=== PATIENT | female | born 1975 | race Caucasian/White ===

== ENCOUNTER 2021-04-23 16:37 | Outpatient (CLI) | payer OTHER, SELFPAY ==
--- NOTE | 2021-04-23 16:47 | XR_ITS ---
WS: [id number] Lumbar spine, 3 views, 04/23/2021 Clinical Data: LUMBAR PAIN Comparison: None. Findings: No compression fractures or subluxation is seen. No disc space narrowing is seen. The transverse proc esses and SI joints are normal. There is minimal anterior osteoarthritic spurring from L1 through L4. There is a 1.5 cm calcification adjacent to the left L5 transverse process which is probably in the colon. There is a large amount o f fecal material throughout the colon. XR/XR lumbar spine 2-3V* [id number] Impression: Mild osteoarthritis.
== END 2021-04-23 16:38 | disposition home or self-care (01) ==
LOC: RAD 16:40
PROVIDERS: PCP Family Medicine; Visit Provider Family Medicine
DX: M54.50 Low back pain, unspecified (principal); M47.816 Spondylosis without myelopathy or radiculopathy, lumbar region
CPT/HCPCS: 72100

== ENCOUNTER 2022-02-19 05:20 | Day surgery (SDC) | payer OTHER, SELFPAY ==
[2022-02-17 08:13] VITALS: BMI 27.3
--- NOTE | 2022-02-19 05:54 | PM.HP ---
Providers/Chief Complaint Primary Care Provider: Rosita Byrd MD Chief Complaint: Z12.11 History of Present Illness Lucina Field is a 46 year old female here for colonoscopy Medications/Allergies Home Medications Medication Instructions Recorded Confirmed Last Taken Type bupropion HCl 300 mg 24 hr tablet, 300 mg PO QAM 11/27/21 02/17/22 Unknown History extended release (Wellbutrin XL) buspirone 10 mg tablet 10 mg PO BID 11/27/21 02/17/22 Unknown History cetirizine 10 mg tablet (Zyrtec) 10 mg PO DAILY PRN Allergy Symptoms 11/27/21 02/17/22 Unknown History cyclobenzaprine 5 mg tablet 5 mg PO ONCE PRN Muscle Spasm 11/27/21 02/17/22 Unknown History diphenhydramine-phenylephrine 25 1 tab PO DAILY 11/27/21 02/17/22 Unknown History mg-10 mg tablet (Benadryl Allergy Plus Congestion) ipratropium bromide 21 mcg (0.03 2 spray intranasal BID 11/27/21 02/17/22 Unknown History %) nasal spray metoprolol tartrate 25 mg tablet 25 mg PO DAILY 11/27/21 02/17/22 Unknown History omeprazole 20 mg capsule,delayed 20 mg PO DAILY 11/27/21 02/17/22 Unknown History release probiotic 1 tab PO DAILY 11/27/21 02/17/22 Unknown History solifenacin 10 mg tablet (Vesicare) 10 mg PO DAILY 11/27/21 02/17/22 Unknown History Allergies Allergy/AdvReac Type Severity Reaction Status Date / Time morphine Allergy itch Verified 02/17/22 08:09 PFSH Acute PFSH: Medical History (Updated 11/27/21 @ 16:10 by Rylan Carter DO) Hx of gastric ulcer Surgical History (Updated 11/27/21 @ 16:09 by Rylan Carter DO) History of dental surgery History of nasal surgery Hx of hysterectomy Hx of knee surgery Social History Smoking and tobacco status: never smoked Vitals/I&O/Wt Weight last 48 hrs Weight 185 lb A&P Assessment and plan (1) Constipation: Plan Colonoscopy Attestations Medical Necessity Statement*: home Coding Level of Care Code Acute Certified Endoscopy Technician for Chg Fwd Diagnoses Constipation K59.00
[2022-02-19 06:10] VITALS: BP 131/77; PULSE 69; RESP 18; TEMP 36.8; O2SAT 100
[2022-02-19] MEDS: sodium chloride 0.9% 1,000 ML 30 ML IV (06:17)
--- NOTE | 2022-02-19 06:50 | ANES.PREANE2 ---
Pre-Anesthetic Assessment Height/Weight: Height 1.75 m Weight 83.915 kg Temp Pulse Resp BP Pulse Ox O2 Del Method 98.3 F 69 18 131/77 100 02/19/22 06:10 02/19/22 06:10 02/19/22 06:10 02/19/22 06:10 02/19/22 06:10 02/19/22 06:10 Preop Diagnosis: screening Operation Date: 02/19/22 07:00 Proposed Procedures p Colonoscopy 01113,Z12.11(Not Applicable) - Rylan Carter, DO Was Beta Alejandro taken within 24 hours: Yes Was Clonidine taken within 24 hours: N/A Last intake: Intake Last Liquid Date 02/18/22 Last Liquid Time 17:30 Last Solid Date 02/17/22 Last Solid Time 17:30 Social No alcohol and No tobacco Exam alert, oriented x 3, clear to auscultation bilaterally and regular rate & rhythm Airway Submandibular: within normal limits Cervical ROM: within normal limits Mallampati: Class I History/ROS No significant history except as noted and No significant complaints Pulmonary None reported CV/HEM Hypertension takes metorpolol, last this morning None reported Hepatic None reported GI None reported Metabolic None reported Musc/skel None reported Neuropsych Depression Anesthetic Plan ASA status: 2 Anesthesia: Anesthesia Evaluation and MAC Risk of > 500 ml blood loss (7ml/kg in children): Yes, adequate IV access and fluids planned Medications/Allergies Home Medications Medication Instructions Recorded Confirmed Last Taken Type bupropion HCl 300 mg 24 hr tablet, 300 mg PO QAM 11/27/21 02/19/22 02/19/22 History extended release (Wellbutrin XL) buspirone 10 mg tablet 10 mg PO BID 11/27/21 02/19/22 02/19/22 History cetirizine 10 mg tablet (Zyrtec) 10 mg PO DAILY PRN Allergy Symptoms 11/27/21 02/19/22 02/18/22 History cyclobenzaprine 5 mg tablet 5 mg PO ONCE PRN Muscle Spasm 11/27/21 02/19/22 02/18/22 History diphenhydramine-phenylephrine 25 1 tab PO DAILY 11/27/21 02/19/22 02/17/22 History mg-10 mg tablet (Benadryl Allergy Plus Congestion) ipratropium bromide 21 mcg (0.03 2 spray intranasal BID 11/27/21 02/19/22 02/18/22 History %) nasal spray metoprolol tartrate 25 mg tablet 25 mg PO DAILY 11/27/21 02/19/22 02/19/22 History omeprazole 20 mg capsule,delayed 20 mg PO DAILY 11/27/21 02/19/22 02/18/22 History release probiotic 1 tab PO DAILY 11/27/21 02/19/22 02/18/22 History solifenacin 10 mg tablet (Vesicare) 10 mg PO DAILY 11/27/21 02/19/22 02/18/22 History Allergies Allergy/AdvReac Type Severity Reaction Status Date / Time morphine Allergy itch Verified 02/19/22 06:05 Current Medications Generic Name Dose Route Start Last Admin Trade Name Freq PRN Reason Stop Dose Admin Sodium Chloride 1,000 mls @ 30 mls/hr 02/19/22 06:15 02/19/22 06:17 Sodium Chloride 0.9% IV 02/20/22 06:14 30 mls/hr .Q24H SOFI Administration PFSH Anesthesia Medical History (Updated 11/27/21 @ 16:10 by Rylan Carter DO) Hx of gastric ulcer Surgical History (Updated 11/27/21 @ 16:09 by Rylan Carter DO) History of dental surgery History of nasal surgery Hx of hysterectomy Hx of knee surgery Social History Smoking and tobacco status: never smoked Data Anesthesia Cardiac Studies: No Data to Display
[2022-02-19 07:21] VITALS: BP 130/68; PULSE 72; RESP 16; TEMP 36.9; O2SAT 100
[2022-02-19 07:41] VITALS: BP 128/71; PULSE 63; RESP 18; O2SAT 100
--- NOTE | 2022-02-19 14:32 | ANE.PACU2 ---
Inpatient post-anesthesia follow up: Airway intact: Yes Vital signs: Temperature 98.4 F Pulse Rate 63 Respiratory Rate 18 Blood Pressure 128/71 Pulse Oximetry 100 Oxygen Delivery Me thod Room Air Oxygen Flow Rate Fraction of Inspir ed Oxygen Hydration adequate: Yes Nausea and vomiting: No Pain level: 1 Mental status: Baseline
== END 2022-02-19 07:56 | disposition home or self-care (01) ==
PROVIDERS: PCP Family Medicine; Visit Provider Surgery
PROC: 0DJD8ZZ Inspection of Lower Intestinal Tract, Via Natural or Artificial Opening Endoscopic (ICD-10-PCS; CPT 45378; principal; 2022-02-19 07:00)
DX: Z12.11 Encounter for screening for malignant neoplasm of colon (principal); I10 Essential (primary) hypertension; Z87.11 Personal history of peptic ulcer disease
CPT/HCPCS: 45378; J2704; J7030

== ENCOUNTER 2022-06-07 13:49 | Emergency (ER) | payer OTHER, SELFPAY ==
[2022-06-07 14:14] VITALS: BP 145/96; PULSE 69; RESP 22; TEMP 36.4; O2SAT 100
--- NOTE | 2022-06-07 14:32 | XRR_ITS ---
PROCEDURE INFORMATION: Exam: XR Chest Exam date and time: 06/07/2022 2:37 PM Age: 46 years old Clinical indication: Other: N/v; Additional info: Covid symptoms TECHNIQUE: Imaging protocol: Radiologic exam of the chest. Views: 1 view. COMPARISON: CR XR chest 2V* [id number] 11/17/2017 3:33 PM FINDINGS: Lungs: Unremarkable. No consolidation. Pleural spaces: Unremarkable. No pleural effusion. No pneumothorax. Heart/Mediastinum: Unremarkable. No cardiomegaly. Bones/joints: Unremarkable. XR/XR chest 1V portable [id number] IMPRESSION: No acute findings.
[2022-06-07] MEDS: ondansetron 2 mg/ML SDV 2 mL 4 MG IVP (14:52)
[2022-06-07] MEDS: sodium chloride 0.9% 1,000 ML 999 ML IV ×2 (14:52→16:02)
--- NOTE | 2022-06-07 14:56 | ED_ITS ---
HPI - COVID General: Chief Complaint: COVID symptoms Stated Complaint: N/V, Covid + Time Seen by Provider: 06/07/22 14:32 History of Present Illness: Patient is a 46-year-old female comes to the ED with nausea and vomiting. Patient started with upper respiratory symptoms approximately a week and a half ago. She was having nasal congestion and drainage, sinus congestion, dry cough and diarrhea. She has been having some mild nausea and vomiting over the past week. Over the last 24 hours her nausea and vomiting has gotten a lot worse. She has not been able to keep any food or fluids down. She endorses having fatigue dizziness and chills. Yesterday patient tested positive for COVID. Denies any fevers or chest pain. COVID 19 common symptoms: positive chills, non-productive cough, fatigue, nausea, vomiting and diarrhea; negative fever(s), productive cough, dyspnea, headache(s), throat pain or nasal congestion COVID 19 other sytmptoms: positive dizziness; negative chest pain COVID Results: No Data to Display Review of Systems Const: Reports: chills and fatigue; Denies: fever(s) Eyes: Denies: change in vision or eye discomfort ENMT: Denies: throat pain, odynophagia, nasal discharge or nasal congestion Card: Denies: chest pain, palpitations, edema, swelling of feet/ankles, dyspnea on exertion or orthopnea Resp: Reports: non-productive cough; Denies: dyspnea or productive cough GI: Reports: nausea, vomiting and diarrhea; Denies: abdominal pain, constipation or hematochezia : Denies: flank pain, dysuria or hematuria Musc: Denies: neck pain, back pain or extremity swelling Skin/Breast: Denies: rash or new lesions Neuro: Reports: dizziness; Denies: headache(s), numbness in extremities or weakness in extremities PFSH ED PFSH: Medical History Hx of gastric ulcer Surgical History History of dental surgery History of nasal surgery Hx of hysterectomy Hx of knee surgery Social History Smoking and tobacco status: never smoked Physical Exam Const: COMMON NORMALS: patient oriented x3 and alert GENERAL APPEARANCE: cooperative HENMT: COMMON NORMALS: normocephalic HEAD & SCALP: normocephalic MOUTH: moist mucous membranes abnormal (Mild dehydration) Details: cracked THROAT: posterior oropharynx normal and uvula midline Neck/C-Spine: COMMON NORMALS: supple GENERAL: Yes normal visual inspection Resp: COMMON NORMALS: normal respiratory effort, No retractions, No use of accessory muscles and clear to auscultation bilaterally AUSCULTATION: clear to auscultation bilaterally Cardio: COMMON NORMALS: regular rate, regular rhythm, S1 normal heart sound present, S2 normal heart sound present, No gallops present (Cardio), No clicks present (Cardio), No murmurs present (Cardio) and Peripheral pulses 2+ throughout RATE: regular rate RHYTHM: regular rhythm HEART SOUNDS: S1 normal heart sound present and S2 normal heart sound present PERIPHERAL PULSES: Peripheral pulses 2+ throughout GI: COMMON NORMALS: Normal to inspection, nondistended, normoactive bowel sounds present, Soft to palpation, non-tender and no masses PALPATION: Yes Soft to palpation : COMMON NORMALS: Yes no CVA tenderness BLADDER/KIDNEY EXAM: Yes no CVA tenderness Back/Pelvis: COMMON NORMALS: no CVA tenderness Extremity: COMMON NORMALS: normal to inspection Neuro: COMMON NORMALS: patient oriented x3 SENSORIUM/ORIENTATION: Yes alert GAIT: Yes Normal gait present Skin: GENERAL SKIN EXAM: dry skin Course Vital Signs: Vital signs: Vital Signs Temperature 97.6 F 06/07/22 14:14 Pulse Rate 69 06/07/22 14:14 Respiratory Rate 22 H 06/07/22 14:14 Blood Pressure 145/96 06/07/22 14:14 Pulse Oximetry 99 06/07/22 17:21 Oxygen Delivery Wa thod 06/07/22 15:36 [facility] - COVID Medical Decision Making Patient is a 46-year-old female comes to the ED with nausea and vomiting. Patient started with upper respiratory symptoms approximately a week and a half ago. She was having nasal congestion and drainage, sinus congestion, dry cough and diarrhea. She has been having some mild nausea and vomiting over the past week. Over the last 24 hours her nausea and vomiting has gotten a lot worse. She has not been able to keep any food or fluids down. She endorses having fatigue dizziness and chills. Yesterday patient tested positive for COVID. Denies any fevers or chest pain. Vitals are stable patient is afebrile. Patient has dry oral mucous membranes, but the rest of her exam is benign. Labs are all unremarkable. Chest x-ray shows no acute findings. Patient was given 2 L of IV fluids, nausea meds and meclizine and her symptoms did improve. She was diagnosed with COVID and dehydration. She was discharged home with a prescription for Zofran and some meclizine. Told to follow-up with her PCP in the next week for reevaluation. Return to ED precautions given. Patient understood and agreed with plan. Lab Data I reviewed the patient's lab results. 06/07/22 14:51 06/07/22 14:51 Radiology Impressions Chest X-Ray 06/07/22 14:32 IMPRESSION: No acute findings. Laboratory Results WBC 7.5 10^3/uL (4.0-10.0) 06/07/22 14:51 RBC 4.57 10^6/uL (4.1-5.3) 06/07/22 14:51 Hgb 13.6 g/dL (11.5-15.3) 06/07/22 14:51 Hct 42.1 % (37.0-47.0) 06/07/22 14:51 MCV 92.1 fl (81-99) 06/07/22 14:51 MCH 29.8 pg (28.0-34.0) 06/07/22 14:51 MCHC 32.3 g/dL (30.0-36.0) 06/07/22 14:51 RDW 12.1 % (12.1-15.1) 06/07/22 14:51 Plt Count 234 10^3/cmm (130-400) 06/07/22 14:51 MPV 10.5 fL (7.4-10.4) H 06/07/22 14:51 Neut % (Auto) 82.8 % 06/07/22 14:51 Lymph % (Auto) 13.8 % 06/07/22 14:51 [place] % (Auto) 2.7 % 06/07/22 14:51 Eos % (Auto) 0.1 % 06/07/22 14:51 Baso % (Auto) 0.3 % 06/07/22 14:51 Neut # (Auto) 6.23 10^3/uL (1.8-7.7) 06/07/22 14:51 Lymph # (Auto) 1.0 10^3/uL (0.8-4.8) 06/07/22 14:51 [place] # (Auto) 0.2 10^3/uL (0.2-0.9) 06/07/22 14:51 Eos # (Auto) 0.0 10^3/uL (0.0-0.8) 06/07/22 14:51 Baso # (Auto) 0.0 10^3/uL (0.0-0.1) 06/07/22 14:51 Nucleated RBC % (auto) 0 % 06/07/22 14:51 Nucleated RBCs # 0.0 /100WBC 06/07/22 14:51 Sodium 135 mmol/L (136-145) L 06/07/22 14:51 Potassium 3.7 mmol/L (3.5-5.1) 06/07/22 14:51 Chloride 98 mmol/L (98-107) 06/07/22 14:51 Carbon Dioxide 25 mmol/L (22-29) 06/07/22 14:51 Anion Gap 15.7 (5-19) 06/07/22 14:51 BUN 8 mg/dL (6-20) 06/07/22 14:51 Creatinine 0.5 mg/dL (0.5-0.9) 06/07/22 14:51 GFR Calculation 132.2 mL/min (90-130) H 06/07/22 14:51 Glucose 105 mg/dL (65-115) 06/07/22 14:51 Calculated Osmolality 279 mOsm/kg (285-295) L 06/07/22 14:51 Calcium 8.9 mg/dL (8.5-10.5) 06/07/22 14:51 Total Bilirubin 0.4 mg/dL (0.15-1.2) 06/07/22 14:51 AST 16 U/L (0-32) 06/07/22 14:51 ALT 22 U/L (0-33) 06/07/22 14:51 Alkaline Phosphatase 105 U/L (35-105) 06/07/22 14:51 Total Protein 7.2 g/dL (6.6-8.7) 06/07/22 14:51 Albumin 3.9 g/dL (3.5-5.2) 06/07/22 14:51 Globulin 3.3 g/dL (1.3-4.6) 06/07/22 14:51 No Data to Display Discharge Plan Discharge Patient Disposition: Home Clinical Impression: Dehydration, COVID Condition: Stable Prescriptions: New ondansetron 4 mg tablet,disintegrating 4 mg PO Q8H PRN (Reason: nausea and vomiting) Qty: 20 0RF meclizine 25 mg tablet 25 mg PO BID PRN (Reason: dizziness) Qty: 20 0RF No Action Benadryl Allergy Plus Congest 25-10 mg tablet 1 tab PO DAILY bupropion HCl [Wellbutrin XL] 300 mg tablet extended release 24 hr 300 mg PO QAM buspirone 10 mg tablet 10 mg PO BID ipratropium bromide 21 mcg (0.03 %) spray,non-aerosol 2 spray intranasal BID Rx Instructions: administer into each nostril metoprolol tartrate 25 mg tablet 25 mg PO DAILY probiotic 1 tab PO DAILY omeprazole 20 mg capsule,delayed release(DR/EC) 20 mg PO DAILY solifenacin [Vesicare] 10 mg tablet 10 mg PO DAILY cetirizine [Zyrtec] 10 mg tablet 10 mg PO DAILY PRN (Reason: Allergy Symptoms) cyclobenzaprine 5 mg tablet 5 mg PO ONCE PRN (Reason: Muscle Spasm) Discharge Orders: Discharge ED (Routine); Ordered 06/07/22 Ordered By: Shaheen Blanco Referrals: Rosita Byrd MD [Primary Care Provider] - Discharge Diet: Regular Discharge Activity: Increase activity as tolerated Activity Restrictions/Additional Instructions: Follow-up with medical provider as directed in the next 3 to 5 days for reevaluation. Take medications as prescribed. Return to the ER or your medical provider if condition worsens. Please read and understand discharge instruct ions. Thank you for choosing [facility] for your healthcare needs today. Please realize this is an emergency room and that we are providing you with a medical screening exam and this may not be complete and all inclusive of all the testing and or work up that you may need to determine your ailment or severity of your illness. It is very important that you follow up as instructed or that you return to the Emergency Department should you have concerns or if your condition changes or worsens in any way. Coding Level of Care Code ED Photographic Enlarger Operator for Hermelinda Dooley
[2022-06-07 15:18] LABS: Basophils % 0.3 %; Eosinophils % 0.1 %; Hematocrit 42.1 % (37.0-47.0); Hemoglobin 13.6 g/dL (11.5-15.3); Lymphocytes % 13.8 %; Mean Corpuscular HGB Conc 32.3 g/dL (30.0-36.0); Mean Corpuscular Hemoglobin 29.8 pg (28.0-34.0); Mean Corpuscular Volume 92.1 fl (81-99); Mean Platelet Volume 10.5 fL (7.4-10.4); Monocytes # 0.2 10^3/uL (0.2-0.9); Monocytes % 2.7 %; Neutrophils # 6.23 10^3/uL (1.8-7.7); Neutrophils % 82.8 %; Nucleated Red Blood Cells % 0 %; Platelet Count 234 10^3/cmm (130-400); Red Blood Count 4.57 10^6/uL (4.1-5.3); Red Cell Distribution Width 12.1 % (12.1-15.1); White Blood Count 7.5 10^3/uL (4.0-10.0)
[2022-06-07 15:34] LABS: Alanine Aminotransferase 22 U/L (0-33); Albumin Level 3.9 g/dL (3.5-5.2); Alkaline Phosphatase 105 U/L (35-105); Anion Gap 15.7 (5-19); Aspartate Amino Transferase 16 U/L (0-32); Blood Urea Nitrogen 8 mg/dL (6-20); Calcium 8.9 mg/dL (8.5-10.5); Carbon Dioxide 25 mmol/L (22-29); Chloride 98 mmol/L (98-107); Globulin 3.3 g/dL (1.3-4.6); Glomerular Filtration Rate 132.2 mL/min (90-130); Glucose 105 mg/dL (65-115); Osmolality Calculated 279 mOsm/kg (285-295); Potassium 3.7 mmol/L (3.5-5.1); Sodium 135 mmol/L (136-145); Total Bilirubin 0.4 mg/dL (0.15-1.2); Total Protein 7.2 g/dL (6.6-8.7)
[2022-06-07 15:36] VITALS: O2SAT 99
[2022-06-07] MEDS: metoclopramide 5 mg/mL SDV 2 mL 10 MG IVP (16:00)
[2022-06-07 17:21] VITALS: O2SAT 99
== END 2022-06-07 17:23 | disposition home or self-care (01) ==
PROVIDERS: Emergency Provider Physician Assistant; PCP Family Medicine
DX: U07.1 COVID-19 (principal); E86.0 Dehydration
CPT/HCPCS: 71045; 80053; 85025; 96374; 96375; 99284; J2405; J2765; J7030

== ENCOUNTER 2022-10-24 13:58 | Outpatient (CLI) | payer OTHER, SELFPAY ==
--- NOTE | 2022-10-24 14:20 | MRR_ITS ---
PROCEDURE INFORMATION: Exam: MR Head Without and With Contrast; Internal Auditory Canals Exam date and time: 10/24/2022 3:27 PM Age: 47 years old Clinical indication: Dizziness; Additional info: Dizziness giddiness/headache; Lt hearing loss, migraines, dizziness, chronic, progressive, no injury. TECHNIQUE: Imaging protocol: MR of the head without and with intravenous contrast. Exam focused on the internal auditory canals. Contrast material: MULTIHANCE; Contrast volume: 17 ml; Contrast route: INTRAVENOUS (IV); COMPARISON: No relevant prior studies available. FINDINGS: Brain: Visualized brain is unremarkable. No midline shift or mass effect. No abnormal enhancement. Unremarkable white matter signal for age. No diffusion restriction. No acute hemorrhage. Cerebral ventricles: No ventriculomegaly. Mastoid air cells: Unremarkable. No effusions. Internal auditory canals: Unremarkable. 7th and 8th cranial nerves are unremarkable. No abnormal masses. Paranasal sinuses: Scattered paranasal sinus mucosal thickening, without air-fluid level present. Bones/joints: Unremarkable. MR/MR iac's wo/w con* [id number] IMPRESSION: 1. No acute intracranial abnormality. 2. No evidence of a vestibular schwannoma.
[2022-10-24] MEDS: gadobenate dimeglumine 20 mL vial IV (16:06)
== END 2022-10-24 13:59 | disposition home or self-care (01) ==
PROVIDERS: PCP Family Medicine; Visit Provider Otolaryngology
DX: H90.5 Unspecified sensorineural hearing loss (principal); R42 Dizziness and giddiness; R51.9 Headache, unspecified
CPT/HCPCS: 70553; A9577

== ENCOUNTER 2022-12-30 08:25 | Outpatient (RCR) | payer OTHER, SELFPAY | END 2023-01-27 23:59 | disposition home or self-care (01) | LOC: SPT 08:25 | PROVIDERS: PCP Family Medicine; Visit Provider Family Medicine | DX: R42 Dizziness and giddiness (principal) | CPT/HCPCS: 95992; 97112; 97161 ==

== ENCOUNTER → 2023-07-12 11:08 | Outpatient (BNVA) | payer OTHER, SELFPAY | PROVIDERS: PCP Family Medicine; Visit Provider Physician Assistant | DX: R07.81 Pleurodynia (principal); M25.562 Pain in left knee | CPT/HCPCS: 71046; 73562 ==

== ENCOUNTER → 2023-08-11 10:02 | Outpatient (BNVA) | payer OTHER, SELFPAY | PROVIDERS: PCP Family Medicine; Visit Provider Psychiatry & Neurology Neurology | DX: R42 Dizziness and giddiness (principal) | CPT/HCPCS: 36415; 81241; 83090; 84439; 84443; 84481; 85210; 85300; 85303; 85306; 85613; 85730; 86146; 86147 ==

== ENCOUNTER 2023-09-24 08:27 | Outpatient (CLI) | payer OTHER, SELFPAY ==
--- NOTE | 2023-09-24 09:00 | USCV_ITS ---
Lucina Field Age: 48 Gender: F : 1975 Exam Date: 09/24/2023 09:02 Ordering Phys: Abdi Chandra MD Technologist: JOSE Exam Location: [facility] [place] Indication: DIZZINESS BP: 102 / 69 HR: 52 Rhythm: Sinus Technical Quality: Adequate MEASUREMENTS (Male / Female) Normal Values 2D ECHO LV Diastolic Diameter PLAX 4.3 cm 4.2 - 5.9 / 3.9 - 5.3 cm IVS Diastolic Thickness 1.5 cm 0.6 - 1.0 / 0.6 - 0.9 cm IVS Systolic Thickness 1.7 cm LVPW Diastolic Thickness 1.4 cm 0.6 - 1.0 / 0.6 - 0.9 cm LVPW Systolic Thickness 2.0 cm LVOT Diameter 2.0 cm LV Ejection Fraction 2D Teich 64.3 % LV Ejection Fraction MOD 2C 61.6 % LV Ejection Fraction 2C AL 62.2 % LA Diameter 2.7 cm RA Systolic Volume 4C AL 20.7 ml RA Systolic Volume 4C MOD 19.8 ml LA Sys Volume AL 33.7 cm cubed LA Sys Volume Index AL 16.8 cm cubed/m squared Aorta at Sinotubular Diameter 2.3 cm IVC Diameter 1.4 cm M-MODE LA Ao Ratio MM 0.8 AV Cusp Separation MM 1.6 cm DOPPLER AV Peak Velocity 108.0 cm/s LVOT Peak Velocity 105.0 cm/s AV Area Cont Eq vti 2.7 cm squared AV Area Cont Eq pk 3.1 cm squared MV Peak Velocity 93.0 cm/s MV Area PHT 3.1 cm squared Mitral E to A Ratio 1.0 TR Peak Velocity 131.0 cm/s TR Peak Gradient 6.9 mmHg TR Mean Velocity 107.0 cm/s TR Mean Gradient 4.8 mmHg TR Velocity Time Integral 41.2 cm TV Peak E Velocity 69.0 cm/s Right Atrial Pressure 3.0 mmHg Pulmonary Artery Systolic Pressu 9.9 mmHg PV Peak Velocity 100.0 cm/s RV Ejection Time 0.3 s FINDINGS Left Ventricle Normal left ventricular size and systolic function, EF 64%. No regional wall motion abnormalities. Right Ventricle The right ventricle is normal in size and function. Right Atrium The right atrium is normal in size. Left Atrium The left atrium is normal in size. Mitral Valve Trace mitral valve regurgitation. Aortic Valve No gross abnormalities noted Tricuspid Valve No gross abnormalities noted Pulmonic Valve No gross valvular abnormalities noted Pericardium Normal pericardium without effusion. Aorta Normal aortic annulus size. IVC The inferior vena cava appears normal. CONCLUSIONS Normal left ventricular size and systolic function, EF 64%. No regional wall motion abnormalities. Trace mitral valve regurgitation. No gross valvular abnormalities. Normal cardiac chamber sizes. There is no pericardial effusion. There are no intracardiac masses. No similar previous studies are available for comparison Dr Jem Solorio MD FACC (Electronically Signed) Final Date: 24 September 2023 19:03 S
--- NOTE | 2023-09-24 09:45 | USCV_ITS ---
Lucina Field Age: 48 Gender: F : 1975 Exam Date: 09/24/2023 08:48 Ordering Phys: Abdi Chandra MD Technologist: JOSE [place] [facility] [place]: DIZZINESS Risk Factors: Previous Vascular Surgery: Right Brachial BP: / Left Brachial BP: / Right Left Velocity (cm/s) Spectral Plaque Velocity (cm/s) Spectral Plaque Syst/Diast Broadening Syst/Diast Broadening 113.50/24.10 Prox CCA 111.50/ 28.20 115.40/25.90 Mid CCA 107.90/ 29.90 88.00/ 13.10 Distal CCA 93.80 / 29.60 103.90/25.40 Prox ICA 86.70 / 22.90 69.00/ 28.20 Mid ICA 83.10 / 29.90 72.20/ 26.30 Distal ICA 57.50 / 24.60 100.20 ECA 103.80 1.20 ICA/CCA 0.90 Antegrade Vertebral Antegrade 51.60/ 13.50 cm/s 56.40/ 19.30 cm/s Tri Subclavian Tri 81.10 108.9 0 CONCLUSIONS Right ICA stenosis <50%. Left ICA stenosis <50%. Intimal thickening in the common carotid arteries and internal carotid arteries bilaterally. Normal antegrade Doppler flow noted in the right vertebral artery. Normal antegrade Doppler flow noted in the left vertebral artery. Filipe Escobar MD (Electronically Signed) Final Date: 24 September 2023 09:57 Amended: 24 September 2023 09:59 C
== END 2023-09-24 08:28 | disposition home or self-care (01) ==
PROVIDERS: PCP Family Medicine; Visit Provider Psychiatry & Neurology Neurology
DX: R42 Dizziness and giddiness (principal); I65.23 Occlusion and stenosis of bilateral carotid arteries
CPT/HCPCS: 93306; 93880

== ENCOUNTER 2023-10-09 10:52 | Outpatient (CLI) | payer OTHER, SELFPAY | END 2023-10-09 10:53 | disposition home or self-care (01) | LOC: SPT 10:54 | PROVIDERS: PCP Family Medicine; Visit Provider Specialist | DX: Z46.89 Encounter for fitting and adjustment of other specified devices (principal); S52.502S Unspecified fracture of the lower end of left radius, sequela | CPT/HCPCS: 97760; L3982 ==